=== PATIENT | male | born 1975 | race Caucasian/White ===

== ENCOUNTER → 2022-01-08 | Outpatient (CLI) | payer OTHER | END | disposition home or self-care (01) | LOC: LABWHC1 09:25 | PROVIDERS: ATTEND Otolaryngology | DX: L50.0 Allergic urticaria (principal); J30.89 Other allergic rhinitis; B44.89 Other forms of aspergillosis | CPT/HCPCS: 36415; 86001 ==

== ENCOUNTER → 2023-05-07 | Outpatient (CLI) | payer OTHER ==
[2023-05-07 16:14] LABS: Basophils # (A) 0.03 X 10*3/uL (0.00-0.10); Basophils % (A) 0.7 %; Eosinophils # (A) 0.06 X 10*3/uL (0.04-0.35); Eosinophils % (A) 1.4 %; HCT 42.6 % (39.6-50.0); HGB 13.7 d/dL (13.0-17.0); Lymphocytes # (A) 1.92 X 10*3/uL (0.90-5.00); MCH 30.5 pg (27.0-32.0); MCHC 32.2 d/dL (32.0-37.0); MCV 94.9 FL (80.0-97.0); Mean Platelet Volume 9.7 FL (9.5-12.2); Monocytes # (A) 0.41 X 10*3/uL (0.20-1.00); Monocytes % (A) 9.4 %; NRBC Per 100 WBC 0 X 10*3/uL (0.00-0.01); Neutrophils # (A) 1.93 X 10*3/uL (1.80-7.70); Neutrophils % (A) 44.3 %; Platelet Count 262 X 10*3/uL (140-440); RBC 4.49 X 10*6/uL (4.40-5.60); RDW 11.6 % (11.5-14.5); WBC 4.36 X 10*3/uL (4.50-10.00)
[2023-05-07 16:49] LABS: ALT 21 U/L (10-49); AST 19 U/L (14-35); Albumin 4.4 d/dL (3.8-4.9); Albumin/Globulin Ratio 1.63 Ratio (1.60-3.17); Alkaline Phosphatase 54 U/L (41-126); Blood Urea Nitrogen 16.5 mg/dL (9.0-27.0); Calcium 9.6 mg/dL (8.7-10.3); Carbon Dioxide 25.7 mmol/L (21.6-31.8); Chloride 107 mmol/L (96-109); Globulin 2.7 d/dL (1.6-3.3); Glucose 93 mg/dL (70-110); LDL Cholesterol,Calculated 124.1 mg/dL (0.0-131.0); Potassium 5.6 mmol/L (3.5-5.5); Sodium 141 mmol/L (135-145); Total Bilirubin 0.3 mg/dL (0.3-1.2); Total Protein 7.1 d/dL (6.2-8.2); VLDL Calculation 18.74 mg/dL (5.00-40.00)
== END | disposition home or self-care (01) ==
LOC: LABWHC1 09:39
PROVIDERS: ATTEND Family Medicine
DX: Z13.220 Encounter for screening for lipoid disorders (principal); Z13.0 Encounter for screening for diseases of the blood and blood-forming organs and certain disorders involving the immune mechanism; Z12.5 Encounter for screening for malignant neoplasm of prostate; Z13.1 Encounter for screening for diabetes mellitus; Z13.228 Encounter for screening for other metabolic disorders; Z13.29 Encounter for screening for other suspected endocrine disorder
CPT/HCPCS: 36415; 80053; 80061; 83036; 84153; 84443; 85025

== ENCOUNTER 2025-03-23 09:17 | Day surgery (SDC) | payer OTHER ==
--- NOTE | 2025-03-23 09:04 | P.GSHP ---
History of Present Illness H&P Date: 03/23/25 CHIEF COMPLAINT: Dysphagia and colon screen HISTORY OF PRESENT ILLNESS: The patient is a 49-year-old male who presents with dysphagia, gastroesophageal reflux disease and need for colon screen. Upper and lower endoscopy were offered for further evaluation and management. PAST MEDICAL HISTORY: Please see list. PAST SURGICAL HISTORY: Please see list. MEDICATIONS: Please see list. ALLERGIES: Please see list. SOCIAL HISTORY: No illicit drug use FAMILY HISTORY: No reports of Crohn disease or ulcerative colitis. REVIEW OF ORGAN SYSTEMS: CONSTITUTIONAL: No reports of fevers or chills. GI: Denies any blood in stools or constipation. PHYSICAL EXAM: VITAL SIGNS: Stable GENERAL: Well-developed pleasant in no acute distress. HEENT: No scleral icterus. Extraocular movements grossly intact. Moist buccal mucosa. NECK: Supple without lymphadenopathy. CHEST: Unlabored respirations. Equal bilateral excursions. CARDIOVASCULAR: Regular rate and rhythm. Distal 2+ pulses. ABDOMEN: Soft, nondistended. MUSCULOSKELETAL: No clubbing, cyanosis, or edema. ASSESSMENT: 1. Dysphagia and gastroesophageal reflux disease 2. Colon screen. PLAN: 1. Recommend proceeding with an upper and lower endoscopy Past Medical History Additional Past Medical History / Comment(s): seasonal allergies, intermittent tenderness LLQ, occasional heartburn, tinnitus History of Any Multi-Drug Resistant Organisms: None Reported Additional Past Surgical History / Comment(s): septoplasty, Lt. ankle repair w/ hardware Past Anesthesia/Blood Transfusion Reactions: No Reported Reaction Smoking Status: Never smoker - Past Family History Mother Family Medical History: Cancer Additional Family Medical History / Comment(s): uterine cancer Father Family Medical History: No Reported History Additional Family Medical History / Comment(s): paternal grandmother - breast cancer Medications and Allergies Home Medications Medication Instructions Recorded Confirmed Type Ascorbic Acid [Vitamin C] 500 mg PO DAILY 03/21/25 03/21/25 History Cetirizine HCl [Zyrtec] 10 mg PO DAILY PRN 03/21/25 03/21/25 History Cyanocobalamin (Vitamin B-12) 1,000 mcg PO DAILY 03/21/25 03/21/25 History [Vitamin B-12] Loratadine [Claritin] 10 mg PO DAILY PRN 03/21/25 03/21/25 History Allergies Allergy/AdvReac Type Severity Reaction Status Date / Time No Known Allergies Allergy Verified 03/21/25 17:23
[2025-03-23 09:42] VITALS: RESP 16; TEMP 97.4
[2025-03-23] MEDS: LACTATED RINGERS 1,000 ML IV SCH (09:53)
[2025-03-23] MEDS: IV FLUID CONTINUATION 1,000 ML IV ONE (09:54)
[2025-03-23] MEDS ORDERED: PROPOFOL 10 MG/ML 20 ML VIAL IV ONE (10:08)
[2025-03-23] MEDS ORDERED: LIDOCAINE 1% INJ 10MG/ML (20 ML MDV) ONE (10:08)
--- NOTE | 2025-03-23 10:20 | P.PCN ---
Date of Procedure: 03/23/25 Description of Procedure: PREOPERATIVE DIAGNOSIS: Gastroesophageal reflux disease. Dysphagia POSTOPERATIVE DIAGNOSIS: Gastroesophageal reflux disease. Gastritis. Diaphragmatic hiatal hernia OPERATION: Esophagogastroduodenoscopy with cold forceps biopsies along esophagus, antrum and duodenum SURGEON: Ana Maria Cooley MD ANESTHESIA: MAC. INDICATIONS: The patient is a 49-year-old male who presents with dysphagia and reflux disease. Benefits and risks of the procedure were described. Informed consent was obtained. DESCRIPTION: The patient was brought into the endoscopy suite and laid in the left lateral decubitus position. An Olympus gastroscope was passed along the posterior oropharynx down to the distal esophagus where the squamocolumnar junction was encountered at 38 cm from the incisors. The stomach was entered and no bile reflux was found. Additional findings are listed below. Biopsies with cold forceps were obtained of the antrum. The first through third portion of the duodenum was examined. Retroflexion of the scope confirmed Hill grade 3 lower esophageal valve. The squamocolumnar junction demonstrated LA grade B erosive esophagitis. The stomach was desufflated. The patient tolerated the procedure well. FINDINGS: Squamocolumnar junction 38 cm from the incisors. Diaphragmatic hiatus at 40 cm. Hiatal hernia, 2 cm Hill grade 3 lower esophageal valve. LA grade B erosive esophagitis. Biopsies obtained Biopsies obtained of the duodenum. Chronic gastritis with biopsies obtained. RECOMMENDATIONS: Upper endoscopy as needed.
--- NOTE | 2025-03-23 10:36 | P.PCN ---
Date of Procedure: 03/23/25 Description of Procedure: PREOPERATIVE DIAGNOSIS: Diverticulosis POSTOPERATIVE DIAGNOSIS: Tubular adenoma sigmoid colon Tubular adenoma descending colon Internal hemorrhoids, grade 2 OPERATION: Colonoscopy to the ileocecal valve and appendiceal orifice, cecum Colonoscopy with hot snare polypectomy SURGEON: Ana Maria Cooley MD. ANESTHESIA: MAC. INDICATIONS: The patient is an 49-year-old male who presents with abdominal pain and diagnosis of colitis. Endoscopy assessment was performed for dive rticulitis/diverticulosis. Benefits and risks were described and informed consent was obtained. DESCRIPTION OF PROCEDURE: The patient had undergone Suprep. The patient had been brought into the ope rating room and laid in the left lateral decubitus position. After adequate intravenous sedation, the rectum was examined with 2% lidocaine jelly. The prostate was unremarkable. External hemorrhoids were encountered. The rectal tone was within normal limits. No lesions were palpated in the rectal vault. An Olympus colonoscope was advanced until the cecum, ileocecal valve and appendiceal orifice were clearly viewed. The prep was good. No large sigmoid diverticulosis was encountered. Colonic polyps were found and removed. No evidence of focal colitis was found. Retroflexion of the scope demonstrated grade 2 internal hemorrhoids without active bleeding or inflammation. The colon was desufflated. The patient had tolerated the procedure well. Withdrawal time was over 6 minutes. FINDINGS: Aronchick preparation quality scale 2 (1-5) Internal hemorrhoids, grade 2 External hemorrhoids, grade 2. No arteriovenous malformations. No large sigmoid diverticulosis Highly redundant sigmoid colon requiring abdominal wall pressure Removal of 2 polyps: - Snare polypectomy descending colon, 5 mm tubulovillous adenoma - Snare polypectomy sigmoid colon, 10 mm tubular adenoma No focal colitis. RECOMMENDATIONS: Repeat colonoscopy 3 years, 2027 Plan - Discharge Summary Discharge Rx Participant: No New Discharge Prescriptions: New Omeprazole [PriLOSEC] 40 mg PO DAILY #14 cap Continue Ascorbic Acid [Vitamin C] 500 mg PO DAILY Cyanocobalamin (Vitamin B-12) [Vitamin B-12] 1,000 mcg PO DAILY Cetirizine HCl [Zyrtec] 10 mg PO DAILY PRN PRN Reason: Allergy Symptoms Loratadine [Claritin] 10 mg PO DAILY PRN PRN Reason: allergy synptoms Discharge Medication List Ascorbic Acid [Vitamin C] 500 mg PO DAILY 03/21/25 [History] Cetirizine HCl [Zyrtec] 10 mg PO DAILY PRN 03/21/25 [History] Cyanocobalamin (Vitamin B-12) [Vitamin B-12] 1,000 mcg PO DAILY 03/21/25 [History] Loratadine [Claritin] 10 mg PO DAILY PRN 03/21/25 [History] Omeprazole [PriLOSEC] 40 mg PO DAILY #14 cap 03/23/25 [Rx] Follow up Appointment(s)/Referral(s): Ana Maria Cooley MD [STAFF PHYSICIAN] - 04/19/25 2:30 pm Patient Instructions/Handouts: Hiatal Hernia (DC), Colorectal Polyps (GEN) Activity/Diet/Wound Care/Special Instructions: Repeat colonoscopy 3 years, 2027 Discharge Disposition: HOME SELF-CARE
[2025-03-23 11:01] VITALS: BP 127/80; PULSE 77
== END 2025-03-23 12:24 | disposition home or self-care (01) ==
LOC: ORWHC2ENDO 09:17
PROVIDERS: ATTEND Surgery Plastic and Reconstructive Surgery
DX: Z12.11 Encounter for screening for malignant neoplasm of colon (principal); D12.5 Benign neoplasm of sigmoid colon; D12.4 Benign neoplasm of descending colon; K64.1 Second degree hemorrhoids; K64.4 Residual hemorrhoidal skin tags; K44.9 Diaphragmatic hernia without obstruction or gangrene; K22.10 Ulcer of esophagus without bleeding; K21.00 Gastro-esophageal reflux disease with esophagitis, without bleeding; K22.89 Other specified disease of esophagus; K29.50 Unspecified chronic gastritis without bleeding; R10.9 Unspecified abdominal pain; J30.2 Other seasonal allergic rhinitis; H93.19 Tinnitus, unspecified ear; Z87.19 Personal history of other diseases of the digestive system; Z98.890 Other specified postprocedural states; Z79.899 Other long term (current) drug therapy
CPT/HCPCS: 45385; 43239; J2003; J2704; 88305